=== PATIENT | male | born 1990 | race Caucasian/White ===

== ENCOUNTER 2020-06-06 13:16 | Outpatient (CLI) | payer MEDICARE, MEDICAID, SELFPAY | END 2020-06-06 13:17 | disposition home or self-care (01) | LOC: ANHAUDIO 13:18 | PROVIDERS: PCP Family Medicine; Visit Provider Family Medicine | DX: G80.9 Cerebral palsy, unspecified (principal); H91.93 Unspecified hearing loss, bilateral | CPT/HCPCS: 92555; 92567; 92579; 92587 ==

== ENCOUNTER 2021-06-08 09:07 | Outpatient (CLI) | payer MEDICARE, MEDICAID, SELFPAY | END 2021-06-08 09:08 | disposition home or self-care (01) | LOC: ANHAUDIO 09:08 | PROVIDERS: PCP Family Medicine; Visit Provider Family Medicine | DX: G80.9 Cerebral palsy, unspecified (principal); H91.93 Unspecified hearing loss, bilateral | CPT/HCPCS: 92555; 92567; 92587 ==